=== PATIENT | female | born 1990 | race Caucasian/White ===

== ENCOUNTER 2019-05-06 21:31 | Emergency (ER) | payer MEDICAID ==
[2019-05-06] MEDS ORDERED: Ketorolac 60 MG/2 ML SDV IM ONE (23:17)
--- NOTE | 2019-05-06 23:30 | CR ---
INDICATION: Pain radiating into the hand without injury. COMPARISON: None available. TECHNIQUE: The right shoulder was examined with AP internal and external rotation and outlet views for a total of three views. FINDINGS: The osseous structures are in anatomic alignment without fracture or dislocation. There is anatomic alignment of the humeral head and glenoid. The visualized chest is clear. IMPRESSION: Normal right shoulder. Dictated by Barrett Doll MD @ May 06 2019 11:28PM Signed by Dr. Barrett Doll @ May 06 2019 11:28PM
--- NOTE | 2019-05-07 01:53 | EDM.PDOC ---
ED HPI GENERAL MEDICAL PROBLEM - General Chief Complaint: Upper Extremity Injury/Pain Stated Complaint: SHARP PAINS ON RIGHT ARM Time Seen by Provider: 05/06/19 22:44 Source of Information: Reports: Patient - History of Present Illness INITIAL COMMENTS - FREE TEXT/NARRATIVE: Pt with no reported pmh presents with right posterior shoulder pain that shoots down her left arm. Pt reports that the pain has gradually worsened through out the day. No trauma fevers, weakness, neck pain or any other symptoms. No history of similar problems. 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 , - Infectious Disease History Infectious Disease History: Reports: Chicken Pox - Past Surgical History Female Surgical History: Reports: Tubal Ligation Social & Family History - Family History Family Medical History: Noncontributory - Tobacco Use Smoking Status *Q: Never Smoker Second Hand Smoke Exposure: No - Caffeine Use Caffeine Use: Reports: Coffee - Recreational Drug Use Recreational Drug Use: Yes Recreational Drug Type: Reports: Marijuana/Hashish Review of Systems - Review of Systems Review Of Systems: See Below Constitutional: Reports: No Symptoms Respiratory: Reports: No Symptoms Cardiovascular: Reports: No Symptoms GI/Abdominal: Reports: No Symptoms Musculoskeletal: Reports: Shoulder Pain, Arm Pain Skin: Reports: No Symptoms ED EXAM, GENERAL - Physical Exam Exam: See Below Exam Limited By: No Limitations General Appearance: Alert, WD/WN, No Apparent Distress Head: Atraumatic, Normocephalic Neck: Non-Tender, Full Range of Motion Respiratory/Chest: Lungs Clear, Normal Breath Sounds Cardiovascular: Regular Rate, Rhythm, No Murmur Peripheral Pulses: 2+: Radial (R) (Ulnar 2+) GI/Abdominal: Soft, Non-Tender, No Distention Extremities: Other (mild ttp in the posterior right shoulder. 5/5 [employer] Payer strength on right hand. 2+ radial and ulnar pulses. RUE neurovascularulary intact.) Course - Vital Signs Last Recorded V/S: Last Vital Signs Temp 97.9 F 05/07/19 00:37 Pulse 55 L 05/07/19 00:37 Resp 17 05/07/19 00:37 BP 143/92 H 05/07/19 00:37 Pulse Ox 96 05/07/19 00:37 - Orders/Labs/Meds Labs: Laboratory Tests 05/06/19 Range/Units 22:35 Urine HCG, Qual NEGATIVE (NEGATIVE) Meds: Medications Discontinued Medications Generic Name Dose Route Start Last Admin Trade Name Catrina PRN Reason Stop Dose Admin Ketorolac Tromethamine 60 mg 05/06/19 23:17 05/06/19 23:37 Toradol IM 05/06/19 23:18 60 mg ONETIME ONE Administration - Re-Assessments/Exams Free Text/Narrative Re-Assessment/Exam: VS wnl and PE benign other than mild ttp. Pain dose not originate from the Cervical spine on my exam. RUE neurovascularly intact on my exam. Pt reports mild help with toradol, but more improvement one placed in sling. Origin of pain unknown, but sounds radicular/nerve related. Nsaids prescribed. Pt given PCP follow up information and is comfortable discharge. Strict return precautions discussed should symptoms worsen or any concerns arise. Departure - Departure Time of Disposition: 01:53 Disposition: Home, Self-Care 01 Condition: Good Clinical Impression: Shoulder pain - Discharge Information *PRESCRIPTION DRUG MONITORING PROGRAM REVIEWED*: Not Applicable *COPY OF PRESCRIPTION DRUG MONITORING REPORT IN PATIENT BETY: Not Applicable Prescriptions: Ibuprofen 800 mg PO Q8H #30 tablet Instructions: Shoulder Pain Referrals: PCP,None [Primary Care Provider] - Forms: ED Department Discharge Care Plan Goals: The following information is given to patients seen in the emergency department who are being discharged to home. This information is to outline your options for follow-up care. We provide all patients seen in our emergency department with a follow-up referral. The need for follow-up, as well as the timing and circumstances, are variable depending upon the specifics of your emergency department visit. If you don't have a primary care physician on staff, we will provide you with a referral. We always advise you to contact your personal physician following an emergency department visit to inform them of the circumstance of the visit and for follow-up with them and/or the need for any referrals to a consulting specialist. The emergency department will also refer you to a specialist when appropriate. This referral assures that you have the opportunity for follow-up care with a specialist. All of these measure are taken in an effort to provide you with optimal care, which includes your follow-up. Under all circumstances we always encourage you to contact your private physician who remains a resource for coordinating your care. When calling for follow-up care, please make the office aware that this follow-up is from your recent emergency room visit. If for any reason you are refused follow-up, please contact the [facility] Emergency Department at and asked to speak to the emergency department charge nurse. [facility] [address] [place] [id number] [address] Sepsis Event Note - Evaluation Sepsis Screening Result: No Definite Risk - Focused Exam Date Exam was Performed: 05/08/19 Time Exam was Performed: 06:44
== END 2019-05-07 02:07 | disposition home or self-care (01) ==
LOC: MW.ED 21:31
DX: M25.511 Pain in right shoulder (principal); Z98.51 Tubal ligation status
CPT/HCPCS: 73030; 81025; 96372; 99283; J1885

== ENCOUNTER 2019-06-20 23:36 | Emergency (ER) | payer MEDICAID ==
--- NOTE | 2019-06-21 00:19 | EDM.PDOC ---
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 The patient is a previous history of a ruptured ectopic for which her left fallopian tube has been removed. She followed up with her riding coach recently and had an ultrasound performed which confirmed a successful positive intrauterine . She had vaginal intercourse yesterday and tonight she started having some vaginal bleeding. No dizziness, no lightheadedness, no syncope or near syncope, no abdominal pain, no dysuria urinary frequency or any other acute complaints. 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: Reports: Ectopic , - Infectious Disease History Infectious Disease History: Reports: Chicken Pox - Past Surgical History Female Surgical History: Reports: Tubal Ligation Social & Family History - Family History Family Medical History: Noncontributory - Tobacco Use Smoking Status *Q: Never Smoker Second Hand Smoke Exposure: No - Caffeine Use Caffeine Use: Reports: Coffee - Recreational Drug Use Recreational Drug Use: No ED ROS GENERAL - Review of Systems Review Of Systems: See Below (Positive for vaginal bleeding, negative for abdominal pain, negative for fevers, negative for syncope or near syncope, all other Positives and pertinent negatives as per HPI. All other pertinent systems were reviewed and are negative) ED EXAM - Physical Exam Exam: See Below Text/Narrative:: Constitutional: No acute distress, Non-toxic appearance, anxious. HEENT: Normocephalic, Atraumatic, EOMI Neck: Normal range of motion, No stridor, trachea midline Respiratory: No respiratory distress, No tachypnea Cardiovascular: Deferred Gastrointestinal: Mildly obese, abdomen is soft and nontender Genital / Urinary: No current vaginal bleeding Musculoskeletal: All four extremities present and atraumatic Back: FROM Integument: Warm, Dry, Color is ethnicity appropriate, No rash. Neuro: Alert, Awake, No focal deficits noted Psych: Affect, Judgement, mood normal Course - Vital Signs Text/Narrative:: The patient already has a confirmed intrauterine . We were unable to access her records but she was able to access her portal on her cell phone and I reviewed her records and it shows that she is AB+ so the patient will not need any RhoGam. I am not concerned about excessive vaginal bleeding as she is not currently bleeding, her vital signs are unremarkable, and she has no symptoms clinically. I performed a bedside transabdominal ultrasound which confirms an intrauterine without any free fluid, there appears to be a normal amount of amniotic fluid, the child is active and moving around and has a normal heart rate. I spoke with the patient in detail about vaginal bleeding and and she does have follow-up with her riding coach in [place], and she will be moving back to [place] this Thursday and she has an riding coach set up to meet her there on an outpatient basis on the following Thursday. The patient states her understanding and is comfortable with discharge. Last Recorded V/S: Last Vital Signs Temp 36.3 C 06/20/19 23:50 Pulse 92 06/20/19 23:50 Resp 16 06/20/19 23:50 BP 144/84 H 06/20/19 23:50 Pulse Ox 97 06/20/19 23:50 Departure - Departure Time of Disposition: 00:18 Disposition: Home, Self-Care 01 Condition: Good Clinical Impression: Vaginal bleeding during - Discharge Information Referrals: PCP,None [Primary Care Provider] - Additional Instructions: As we discussed, it is okay to have sexual intercourse during but clear this with your riding coach. Follow-up with your doctors as scheduled and return to the ER for any concerns. Sepsis Event Note - Evaluation Sepsis Screening Result: No Definite Risk - Focused Exam Vital Signs: Vital Signs Temp Pulse Resp BP Pulse Ox 06/20/19 23:50 36.3 C 92 16 144/84 H 97 Date Exam was Performed: 06/21/19 Time Exam was Performed: 00:14
== END 2019-06-21 00:32 | disposition home or self-care (01) ==
LOC: MW.ED 23:36
DX: O20.9 Hemorrhage in early pregnancy, unspecified (principal); Z88.5 Allergy status to narcotic agent; Z3A.09 9 weeks gestation of pregnancy
CPT/HCPCS: 99283

== ENCOUNTER 2019-06-22 07:46 | Emergency (ER) | payer MEDICAID ==
[2019-06-22] MEDS ORDERED: Sodium Chloride 0.9% 250 ML IV SCH (08:15)
[2019-06-22 09:07] LABS: BLOOD UREA NITROGEN,BUN 7 mg/dL (7.0-18.0); CARBON DIOXIDE,CO2 22.8 mmol/L (21.0-32.0); CHLORIDE,CL 102 mmol/L (98-107); GLUCOSE RANDOM 91 mg/dL (74-106); POTASSIUM,K 3.5 mmol/L (3.5-5.1); SODIUM,NA 138 mmol/L (136-145)
--- NOTE | 2019-06-22 09:50 | US ---
First trimester obstetrical ultrasound: Multiple real-time images were obtained transabdominally. Comparison: No prior obstetrical imaging is available. Dates: Current ultrasound: ALPHONSE 01/17/20, gestational age 10 weeks 1 day Single intrauterine gestation is seen. Small embryo is noted as well as yolk sac. Very minimal subchorionic hemorrhage is noted. Maternal ovaries appear within normal limits. Small corpus luteum cyst noted within the left ovary. Measurements: [place]-rump length: 3.31 cm - 10 weeks 1 day Heart rate: 161 bpm Impression: 1. Single intrauterine gestation. Dates as noted above. 2. Very minimal subchorionic hemorrhage is noted. 3. No other complicating process is seen. Diagnostic code #2 This report was dictated in Mountain Standard Time
--- NOTE | 2019-06-22 10:07 | EDM.PDOC ---
ED HPI GENERAL MEDICAL PROBLEM - General Chief Complaint: ADVERTISING SOLICITOR Problem Stated Complaint: 9 WKS , BLEEDING Time Seen by Provider: 06/22/19 07:59 Source of Information: Reports: Patient History Limitations: Reports: No Limitations - History of Present Illness INITIAL COMMENTS - FREE TEXT/NARRATIVE: Presents emergency room with vaginal bleeding and clotting. Patient has a history of 9 weeks yesterday had some vaginal bleeding with normal ultrasound. Patient noticed some bleeding today and was instructed by physician to present to the emergency room. Patient in no distress No active bleeding at this time Onset: Today Duration: Day(s): Location: Reports: Abdomen, Pelvis Quality: Reports: Ache Severity: Mild Improves with: Reports: None Worsens with: Reports: None Associated Symptoms: Reports: No Other Symptoms - Related Data Allergies Allergy/AdvReac Type Severity Reaction Status Date / Time hydrocodone [From Vicodin] Allergy Vomiting Verified 06/22/19 08:02 Home Meds: Home Meds Ibuprofen 800 mg PO Q8H #30 tablet 05/07/19 [Rx] Past Medical History - Past Health History Medical/Surgical History: Denies Medical/Surgical History Genitourinary History: Reports: None 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 Denies: Fever, Chills HEENT: Reports: No Symptoms. Denies: Contact Lenses, Dental Pain Respiratory: Reports: No Symptoms. Denies: Shortness of Breath, Wheezing Cardiovascular: Reports: No Symptoms. Denies: Chest Pain, Blood Pressure Problem Endocrine: Reports: No Symptoms. Denies: Fatigue, High Glucose GI/Abdominal: Reports: No Symptoms, Constipation. Denies: Abdominal Pain, Anorexia, Black Stool : Reports: No Symptoms Musculoskeletal: Reports: No Symptoms. Denies: Neck Pain, Shoulder Pain Skin: Reports: No Symptoms. Denies: Cyanosis, Rash Neurological: Reports: No Symptoms. Denies: Confusion, Dizziness Psychiatric: Reports: No Symptoms. Denies: Agitation Hematologic/Lymphatic: Reports: No Symptoms. Denies: Anemia, Easy Bleeding Immunologic: Reports: No Symptoms. Denies: Anaphylaxis ED EXAM - Physical Exam Exam: See Below Text/Narrative:: 28-year-old female presents the emergency room chief complaint of vaginal bleeding. Patient is approximately 9 weeks has a history of vaginal bleeding 2 weeks ago was instructed to come to her emergency room by her physician. Ultrasound reveals the baby is good heart rate is 161 no evidence of bleeding good heart rate. Patient's quality of hCG has increased from 02589.0 on 05/23/1999 [id number] on, 06/21/2001. Patient's baby is doing fine at this time. I will send the patient home with beta-hCG qualitative results. Exam abdominal soft and nontender. We will defer pelvic exam in lieu of ultrasound/patient was evaluated 2 weeks ago prior. And is not bleeding at this time. Exam Limited By: No Limitations General Appearance: Alert, WD/WN, No Apparent Distress Eye Exam: Bilateral Eye: Normal Fundi, Normal Inspection, PERRL, Vision Changes Ears: Normal External Exam, Normal Canal, Hearing Grossly Normal, Normal TMs Nose: Normal Inspection, Normal Mucosa Throat/Mouth: Normal Inspection, Normal Lips, Normal Teeth Head: Atraumatic, Normocephalic Neck: Normal Inspection, Supple Respiratory/Chest: No Respiratory Distress, Lungs Clear, Normal Breath Sounds, No Accessory Muscle Use, Chest Non-Tender Rectal Exam: Normal Exam, Deferred (Female) Exam: Other (Deferred secondary multiple exams within a week. Patient has had multiple ultrasounds and is not actively bleeding at this time.) Heart Tones: Present (161) Movement: Active Back Exam: Normal Inspection, Full Range of Motion Neurological: Alert, Oriented, CN II-XII Intact, Normal Reflexes Psychiatric: Normal Affect, Normal Mood Skin Exam: Warm, Dry, Intact, Normal Color Lymphatic: No Adenopathy Course - Vital Signs Text/Narrative:: This 28-year-old female presents with vaginal bleeding is 9 weeks Patient has no active bleeding at this time with a normal ultrasound and progressing quantitative hCG. Patient will be discharged home with a diagnosis of threatened AB. Last Recorded V/S: Last Vital Signs Temp 98.4 F 06/22/19 09:46 Pulse 73 06/22/19 09:46 Resp 16 06/22/19 07:59 BP 129/80 06/22/19 09:46 Pulse Ox 97 06/22/19 09:46 - Orders/Labs/Meds Orders: Active Orders 24 hr Category Date Time Status Sodium Chloride 0.9% [Normal Saline] 250 ml Med 06/22/19 08:15 Active IV ASDIRECTED Medication Orders Sodium Chloride (Normal Saline) 250 mls @ 250 mls/hr IV ASDIRECTED MICHELLE Last Admin: 06/22/19 08:28 Dose: 250 mls/hr Labs: Laboratory Tests 06/22/19 06/22/19 06/22/19 Range/Units 08:27 08:27 08:27 WBC 10.41 (4.0-11.0) K/uL RBC 4.22 L (4.30-5.90) M/uL Hgb 12.6 (12.0-16.0) g/dL Hct 36.5 (36.0-46.0) % MCV 86.5 (80.0-98.0) fL MCH 29.9 (27.0-32.0) pg MCHC 34.5 (31.0-37.0) g/dL RDW Std Deviation 38.0 (28.0-62.0) fl RDW Coeff of Emerson 12 (11.0-15.0) % Plt Count 305 (150-400) K/uL MPV 10.90 (7.40-12.00) fL Neut % (Auto) 73.5 (48.0-80.0) % Lymph % (Auto) 20.1 (16.0-40.0) % Bull[place] % (Auto) 5.6 (0.0-15.0) % Eos % (Auto) 0.6 (0.0-7.0) % Baso % (Auto) 0.2 (0.0-1.5) % Neut # (Auto) 7.7 H (1.4-5.7) K/uL Lymph # (Auto) 2.1 (0.6-2.4) K/uL [place] # (Auto) 0.6 (0.0-0.8) K/uL Eos # (Auto) 0.1 (0.0-0.7) K/uL Baso # (Auto) 0.0 (0.0-0.1) K/uL Nucleated RBC % 0.0 /100WBC Nucleated RBCs # 0 K/uL Sodium 138 (136-145) mmol/L Potassium 3.5 (3.5-5.1) mmol/L Chloride 102 (98-107) mmol/L Carbon Dioxide 22.8 (21.0-32.0) mmol/L BUN 7 (7.0-18.0) mg/dL Creatinine 0.7 (0.6-1.0) mg/dL Est Cr Clr Drug Dosing 98.98 mL/min Estimated GFR (MDRD) > 60.0 ml/min Glucose 91 (74-106) mg/dL Calcium 8.9 (8.5-10.1) mg/dL Total Bilirubin 0.3 (0.2-1.0) mg/dL AST 11 L (15-37) IU/L ALT 16 (14-63) IU/L Alkaline Phosphatase 39 L (46-116) U/L Total Protein 7.4 (6.4-8.2) g/dL Albumin 3.6 (3.4-5.0) g/dL Globulin 3.8 (2.6-4.0) g/dL Albumin/Globulin Ratio 0.9 (0.9-1.6) HCG, Quant 831641.0 mIU/mL Meds: Medications Generic Name Dose Route Start Last Admin Trade Name Freq PRN Reason Stop Dose Admin Sodium Chloride 250 mls @ 250 mls/hr 06/22/19 08:15 06/22/19 08:28 Normal Saline IV 250 mls/hr ASDIRECTED MICHELLE Administration Departure - Departure Time of Disposition: 10:09 Disposition: Home, Self-Care 01 Condition: Good Clinical Impression: Threatened - Discharge Information Instructions: Vaginal Bleeding During , First Trimester, [id number] Referrals: PCP,None [Primary Care Provider] - Sepsis Event Note - Evaluation Sepsis Screening Result: No Definite Risk - Focused Exam Vital Signs: Vital Signs Temp Pulse Resp BP Pulse Ox 06/22/19 09:46 98.4 F 73 129/80 97 06/22/19 07:59 97.4 F 85 16 141/85 H 96 Date Exam was Performed: 06/22/19 Time Exam was Performed: 10:01 - My Orders Last 24 Hours: My Active Orders 06/22/19 08:15 Sodium Chloride 0.9% [Normal Saline] 250 ml IV ASDIRECTED - Assessment/Plan Last 24 Hours: My Active Orders 06/22/19 08:15 Sodium Chloride 0.9% [Normal Saline] 250 ml IV ASDIRECTED
== END 2019-06-22 10:17 | disposition home or self-care (01) ==
LOC: MW.ED 07:46
DX: O20.0 Threatened abortion (principal); Z88.8 Allergy status to other drugs, medicaments and biological substances; Z3A.09 9 weeks gestation of pregnancy
CPT/HCPCS: 36415; 76801; 80053; 84702; 85025; 96360; 99284; J7050; 99282